=== PATIENT | female | born 1975 | race Caucasian/White ===

== ENCOUNTER 2019-06-22 21:38 | Emergency (ER) | payer OTHER ==
[~2019-06-22] VITALS: Ht 165.1 cm; Wt 113.0 kg
[2019-06-22 21:50] VITALS: BP 149/113
--- NOTE | 2019-06-22 22:02 | PHYS DOC ---
Past History Past Medical History: Anxiety, Arthritis, High Cholesterol, Hypothyroid, Migraines Past Medical History PTSD Past Surgical History: Appendectomy, Cholecystectomy Additional Past Surgical Histo: Right knee x 8, left knee x 1, spinal cord stimulator, deviated septum repa Past Surgical History Right ankle ORIF Smoking: Cigarettes Alcohol Use: Occasionally Drug Use: None General Adult EDM: Chief Complaint: FOOT INJURY PAIN HPI: HPI: 44 year old female presents with report of dropping a entertainment door on her left foot at 1100 this morning. Patient reports she sustained a small laceration to the top of her foot which she cleaned and bandaged. Reports continued pain throughout the day. Reports difficulty with ambulation due to discomfort. Reports last tetanus booster less than 5 years ago. Denies use of blood thinners. Denies . Patient reports concern she might have broken her foot. Review of Systems: Review of Systems: Constitutional: Denies fever or chills Eyes: Denies redness or eye pain HENT: Denies nasal congestion or sore throat Respiratory: Denies cough or shortness of breath Cardiovascular: Denies chest pain or palpitations GI: Denies abdominal pain, nausea, or vomiting : Denies dysuria or hematuria Musculoskeletal: Denies back pain; reports left foot pain Integument: Reports small laceration to top of left forefoot. Neurologic: Denies headache, focal weakness or sensory changes Complete systems were reviewed and found to be within normal limits, except as documented in this note. Physical Exam: PE: Constitutional: Well developed, well nourished, no acute distress, non-toxic appearance HENT: Normocephalic, atraumatic, oropharynx moist Eyes: Conjunctiva normal, no discharge Neck: Normal range of motion, supple Cardiovascular: Left PT and DP +2, cap refill less than 2 seconds Lungs & Thorax: No respiratory distress, equal chest rise and fall Skin: Warm, dry, 1cm linear superficial laceration to left distal 1st metatarsal, no active bleeding, well approximated Extremities: Left 1st metatarsal tenderness, ROM intact, no ecchymosis Neurologic: Alert and oriented X 3, no focal deficits noted Psychologic: Affect normal, judgment normal EKG: EKG: [] Radiology/Procedures: Radiology/Procedures: PROCEDURE: FOOT LEFT 3V Left foot 3 views 06/22/2019. Reason for exam: Injured first metatarsal. No fracture or dislocation is seen. There is no apparent foreign body or significant arthritic change. IMPRESSION: No acute abnormality. Electronically signed by: Torres Hughes Jr., MD (06/22/2019 10:12 PM) [id number] Course & Med Decision Making: Course & Med Decision Making Pertinent Imaging studies reviewed. (See chart for details) Patient presents with blunt trauma to left forefoot with small laceration noted. Laceration not warranting repair. Wound cleaned and dressed with triple ant ibiotic ointment applied. Tetanus up-to-date. X-ray obtained without fracture or dislocation. Ice applied. Postop shoe provided for comfort. Patient stable for discharge with outpatient follow-up with PCP. Discussed findings and plan with patient, who acknowledges understanding and agreement. Judith Disclaimer: Judith Disclaimer: This electronic medical record was generated, in whole or in part, using a voice recognition dictation system. Splinting Splinting : Location: Left foot Pre-Made Type: Post op shoe Pre-Proc Neuro Vasc Exam: normal Post-Proc Neuro Vasc Exam: normal, unchanged from pre-exam Departure Departure: Impression: Primary Impression: Foot contusion Qualified Codes: S90.32XA - Contusion of left foot, initial encounter Additional Impression: Foot laceration Qualified Codes: S91.312A - Laceration without foreign body, left foot, initial encounter Disposition: 01 HOME, SELF-CARE Condition: STABLE Patient Instructions: Foot Contusion, [id number], Hard-Soled Shoe, Laceration Care, Adult, [id number] Additional Instructions: Do not soak your wound. You may shower. Clean wound daily with soap and water. Change dressing 2 times daily. Use over the counter antibiotic ointment with each dressing change. After wound completely healed you may use Vitamin E ointment to soften the wound and prevent scarring. Use over the counter Tylenol and/or Ibuprofen for pain or discomfort. ISSA COLON DO June 22, 2019 22:01
[2019-06-22] MEDS ORDERED: NEOMY/BACITR/POLYMYXIN OINT PACKET. TP ONE (22:15)
--- NOTE | 2019-06-22 22:15 | RAD ---
Left foot 3 views 06/22/2019. Reason for exam: Injured first metatarsal. No fracture or dislocation is seen. There is no apparent foreign body or significant arthritic change. IMPRESSION: No acute abnormality. Electronically signed by: Torres Hughes Jr., MD (06/22/2019 10:12 PM) [id number]
== END 2019-06-22 22:30 | disposition home or self-care (01) ==
LOC: ER 21:38
DX: S91.312A Laceration without foreign body, left foot, initial encounter (principal); M19.90 Unspecified osteoarthritis, unspecified site; E78.00 Pure hypercholesterolemia, unspecified; E03.9 Hypothyroidism, unspecified; G43.909 Migraine, unspecified, not intractable, without status migrainosus; F43.10 Post-traumatic stress disorder, unspecified; F17.210 Nicotine dependence, cigarettes, uncomplicated; W20.8XXA Other cause of strike by thrown, projected or falling object, initial encounter; Y93.89 Activity, other specified; Y92.89 Other specified places as the place of occurrence of the external cause; Y99.8 Other external cause status
CPT/HCPCS: 73630; 99283